=== PATIENT | female | born 1970 | race Asian ===

== ENCOUNTER → 2016-04-09 | Outpatient (CLI) | payer BC | LOC: OD 09:00 | PROVIDERS: ATTEND Urology | DX: N20.0 Calculus of kidney (principal) | CPT/HCPCS: 74000; 74176 ==

== ENCOUNTER 2016-04-30 12:47 | Day surgery (SDC) | payer BC ==
[2016-04-29 11:39] LABS: HEMATOCRIT 36.2 % (36.0-47.0); HEMOGLOBIN 12.3 g/dL (12.0-15.5); HGB HCT DIFFERENCE 0.7; MEAN CORPUSCULAR HEMOGLOBIN 29.2 pg (27.0-33.4); MEAN CORPUSCULAR VOLUME 86 fl (80-97); RED BLOOD COUNT 4.22 10^6/uL (3.72-5.28); RED CELL DISTRIBUTION WIDTH 13.5 % (11.5-14.0); WHITE BLOOD COUNT 7.6 10^3/uL (4.0-10.5)
[2016-04-30] MEDS ORDERED: MIDAZOLAM 2 MG/2 ML INJ ONE ×2 (13:30)
[2016-04-30] MEDS ORDERED: FENTANYL CITRATE INJ/PF 250 MCG/5 ML AMPULE ONE (13:31)
[2016-04-30] MEDS ORDERED: OXYCODONE-ACETAMINOPHEN 5-325 MG TABLET ONE (15:35)
--- NOTE | 2016-05-04 12:52 | Operative Report ---
Operative Report DATE OF SURGERY: 04/30/16 PREOPERATIVE DIAGNOSIS: L renal and ureteral calculi POSTOPERATIVE DIAGNOSIS: Same OPERATION: ESWL SURGEON: SHONDA DUARTE ANESTHESIA: Moderate Sedation TISSUE REMOVED OR ALTERED: No COMPLICATIONS: None ESTIMATED BLOOD LOSS: None INTRAOPERATIVE FINDINGS: As Above PROCEDURE: The patient was transported to the [facility] mobile suite. He was placed in the supine position on the E[facility] table where moderate sedation was induced. Tones in the left upper ureter and left renal collecting system were sequentially localized radiographically and were treated with ESWL. All stones appeared to fragment very nicely. The procedure was tolerated well. There were no complications. She was allowed to awaken from sedation and then was transported back to the recovery room in good condition.
== END 2016-04-30 16:27 | disposition home or self-care (01) ==
LOC: SC 12:47
PROVIDERS: ATTEND Urology
PROC: 0TF4XZZ Fragmentation in Left Kidney Pelvis, External Approach (ICD-10-PCS; 2016-04-30)
PROC: 0TF7XZZ Fragmentation in Left Ureter, External Approach (ICD-10-PCS; principal; 2016-04-30 13:30)
DX: N20.2 Calculus of kidney with calculus of ureter (principal); Z87.442 Personal history of urinary calculi; R10.9 Unspecified abdominal pain; R31.9 Hematuria, unspecified; Z79.899 Other long term (current) drug therapy
CPT/HCPCS: 36415; 85027; 50590; J2250; J3010

== ENCOUNTER → 2016-05-04 | Outpatient (CLI) | payer BC | LOC: OD 11:55 | PROVIDERS: ATTEND Urology | DX: N20.0 Calculus of kidney (principal) | CPT/HCPCS: 74000 ==

== ENCOUNTER → 2016-05-20 | Outpatient (CLI) | payer BC | LOC: OD 10:02 | PROVIDERS: ATTEND Urology | DX: N20.0 Calculus of kidney (principal) | CPT/HCPCS: 74000 ==

== ENCOUNTER → 2016-06-17 | Outpatient (CLI) | payer BC ==
[2016-06-17 16:35] LABS: PHOSPHORUS 3.8 mg/dL (2.5-4.5); URIC ACID 4.4 mg/dL (2.5-7.0)
[2016-06-24 16:37] LABS: 24 HR CALCIUM URINE 165 mg/24 hr (50-275); CALCIUM URINE 21.2 mg/dL (Not Estab.); CITRIC ACID (CITRATE) URINE 2 435 mg/L (Not Estab.); CITRIC ACID(CITRATE) URINE 24H 339 mg/24 hr (320-1240); CYCLIC AMP URINE 3.9 UMOL/L (1.5-9.5); MAGNESIUM UR 8.3 mg/dL (Not Estab.); MAGNESIUM URINE 24HR 65 mg/24 hr (12-293); OXALATE UR 26 mg/L (Not Estab.); OXALATE URINE 24HR 20 mg/24 hr (4-31); PH URINE 6.1 (.); PHOSPHORUS URINE 85.6 mg/dL (Not Estab.); PHOSPHORUS URINE 24HR 2 668 mg/24 hr (340-1000); SODIUM URINE 154 mmol/L (Not Estab.); SODIUM URINE 24HR 120 mmol/24 hr (39-258); SULFATE URINE 22 mEq/L (Not Estab.); SULFATE URINE 24HR 17 mEq/24 hr (0-30); URIC ACID URINE 42.8 mg/dL (Not Estab.); URIC ACID URINE 24HR 334 mg/24 hr (250-750)
[2016-06-25 08:30] LABS: SPECIFIC GRAVITY URINE 1.021 (1.010-1.030)
== END ==
LOC: OD 14:19
PROVIDERS: ATTEND Urology
DX: N20.0 Calculus of kidney (principal)
CPT/HCPCS: 36415; 81003; 82131; 82340; 82507; 82570; 83735; 83935; 83945; 84100; 84105; 84156; 84300; 84392; 84550; 84560